=== PATIENT | female | born 1945 | race Caucasian/White ===

== ENCOUNTER → 2024-01-16 12:14 | Outpatient (REF) | payer OTHER, SELFPAY | LOC: PAVMRI 12:14 | PROVIDERS: ATTENDING PHYSICIAN Internal Medicine Gastroenterology; FAMILY PHYSICIAN Internal Medicine | DX: K83.8 Other specified diseases of biliary tract (principal) | CPT/HCPCS: 74181; A9575 ==

== ENCOUNTER 2024-06-17 19:21 | Emergency (ER) | payer OTHER, SELFPAY ==
[2024-06-17 19:23] VITALS: BP 136/74
[2024-06-17 19:46] LABS: % Basophils 0.5 % (0-2); % Eosinophils 1.5 % (0-6); % Immature Granulocytes 0.4 % (0-0.5); % Lymphocytes 19.1 % (20.5-51.1); % Monocytes 11.2 % (1.7-9.3); % Neutrophils 67.3 % (42.2-75.2); Absolute Basophils 0.1 10^3/uL (0-0.2); Absolute Eosinophils 0.1 10^3/uL (0-0.7); Absolute Lymphocytes 1.8 10^3/uL (1.2-3.4); Absolute Neutrophils 6.2 10^3/uL (1.4-6.5); Hematocrit 41.6 % (37.0-47.0); Hemoglobin 14.5 g/dL (12.0-16.0); Mean Corp Hgb Conc. 34.9 g/dL (33.0-37.0); Mean Corpuscular Hgb 31.9 pg (27.0-31.0); Mean Corpuscular Volume 91.4 fL (81.0-99.0); Mean Platelet Volume 10.3 fL (7.4-10.4); Nucleated Red Blood Cells % 0 %; Platelet Count 232 10^3/uL (130-400); Red Blood Cell Count 4.55 10^6/uL (4.20-5.40); Red Cell Dist. Width 11.9 % (11.5-14.5); White Blood Cell Count 9.2 10^3/uL (4.8-10.8)
[2024-06-17 20:02] LABS: ALT (SGPT) 27 U/L (0-35); AST (SGOT) 43 U/L (14-36); Albumin 4.4 g/dl (3.5-5.0); Alkaline Phosphatase 93 U/L (38-126); Blood Urea Nitrogen 18 mg/dl (7-17); Calcium 9.1 mg/dl (8.4-10.2); Carbon Dioxide 25 mmol/L (22-30); Chloride 104 mmol/L (98-107); Glucose 121 mg/dl (70-99); Lipase 55 U/L (23-300); Potassium 3.9 mmol/L (3.5-5.1); Sodium 138 mmol/L (135-145); Total Bilirubin 0.8 mg/dl (0.2-1.3); Total Protein 6.8 g/dl (6.3-8.2); eGFR > 60.00
[2024-06-17 20:40] VITALS: BMI 27.7
[2024-06-17 20:43] VITALS: BP 139/59
[2024-06-17 21:15] VITALS: BP 141/47
[2024-06-17] MEDS: NSS 500 IV (21:17)
--- NOTE | 2024-06-17 22:12 | ED.GENMED ---
History of Present Illness
General
Chief Complaint: Abdominal Symptoms
Source: patient and family
Exam Limitations: none
Time Seen by Provider: 06/17/24 20:29
History of Present Illness
History of Present Illness:
Patient describing months of vague abdominal discomfort with soft watery mucousy stool. Some poor p.o. intake. Waited till now because of family commitments. No fever no vomiting no other complaints.
Past History
Past History
ED Past Medical History: CAD, GERD (w/ ulcer) and Hypercholesterolemia
ED Past Surgical History: Cardiac (Angioplasty), Gynecological (Breast reduction) and Other (Ruptured ulcer repair)
Social History
Tobacco: Non-smoker
Alcohol: None
Drug: None
Personal:
Living: with family
Employment: Retired
Review of Systems
Review of Systems
All Other Systems: Not applicable
Constitutional: Denies fever or chills
Respiratory: Reports no symptoms
Cardiac: Reports no symptoms
Phy Exam
Physical Exam
Physical Exam:
GENERAL: Alert and oriented in no apparent distress. Ambulating to the bathroom without difficulty
EYE: Orbits normal.
NECK: Supple, no significant adenopathy.
ENT: Pharynx without erythema
CARDIAC: Regular rate and rhythm without any obvious murmurs.
LUNGS: Clear breath sounds,normal
ABDOMEN: Soft, very minimal vague right-sided abdominal tenderness. Nonlocalizing. No rebound or guarding no mass or hernia. Rectal exam with no stool in the rectal vault. Diarrhea was very yellow mucousy with a hint of blood
NEUROLOGICAL: Alert and oriented , grossly non-focal
SKIN: Warm and dry, no rash or lesion, no discoloration, skin intact.
MUSCULOSKELETAL: No edema,no deformity.Good color
PSYCH: Normal and appropriate interaction.
Course
Orders/Labs/Results
Orders:
Orders
06/17/24 19:33
Complete Blood Count/With Diff Urgent
Comprehensive Metabolic Panel Urgent
Lipase Urgent
06/17/24 21:10
IV Insert/Care/Rem.- Treatment PRN
0.9% Sodium Chloride 500 ml [Nss] 500 ml IV BOLUS
06/17/24 21:11
CT Abd/Pel (IV only)-DH only Urgent
Comment:
Reason For Exam: Recurrent right-sided abdominal pain with mucousy
06/17/24 21:20
STOOL [C difficile Antigen & Toxins] Urgent
BRITTNY Source: Feces/Stool
Specimen Description:
Date Specimen was Collected: 06/17/24
Time Specimen was Collected: 21:12
Stool Culture Urgent
BRITTNY Source: Feces/Stool
Specimen Description:
Date Specimen was Collected: 06/17/24
Time Specimen was Collected: 21:12
06/17/24 23:02
Ciprofloxacin HCl [Cipro] 500 mg PO NOW STA
MetroNIDAZOLE [Flagyl] 500 mg PO NOW STA
Abnormal Lab Results
06/17/24
19:33
MCH 31.9 H pg
(27.0-31.0)
Absolute Monos (auto) 1.0 H 10^3/uL
(0.1-0.6)
Lymphocytes % 19.1 L %
(20.5-51.1)
Monocytes % 11.2 H %
(1.7-9.3)
BUN 18 H mg/dl
(7-17)
Glucose 121 H mg/dl
(70-99)
AST 43 H U/L
(14-36)
06/17/24 19:33
06/17/24 19:33
Vital Signs
Initial and Last Documented VS:
Initial Vital Signs
Temp Pulse Resp BP Pulse Ox
98.9 F 84 16 136/74 97
06/17/24 19:23 06/17/24 19:23 06/17/24 19:23 06/17/24 19:23 06/17/24 19:23
Last Documented Vital Signs
Temp Pulse Resp BP Pulse Ox
98.9 F 86 16 145/65 98
06/17/24 19:23 06/17/24 23:00 06/17/24 23:07 06/17/24 23:07 06/17/24 23:00
MDM/Problems Addressed
Differential Diagnosis Includes:
Patient describing mucousy stools. Most consistent with a colitis. Workup in progress. Clinically nontoxic. Nonsurgical exam. Stool culture also ordered.
*Pulse Oximetry
Patient hypoxic: no
*Critical Care Note
Total Time (30-74mins, 75-104mins- exclusive of procedures): Not Applicable
Data Reviewed
Review of Other/Old Records Reveals: Labs, Records and Testing
Update Note
Update Note:
Sigmoid proctoscopy colitis. Kerri options with patient. Clinically stable for outpatient management. Will start Flagyl and Cipro and refer to outpatient GI for close follow-up. Texted to the GI first front ventilator
ED Attending Note
-
Portions of this chart may have been created with voice recognition software.� Occasional wrong word or��sound alike� substitutions may have occurred due to the inherent limitations of voice recognition software.
Discharge Plan
Departure
Patient Disposition: Home (Routine Discharge)
Date of Disposition: 06/17/24
Time of Disposition: 23:07
Patient with high blood pressure during this ER visit?: Yes
Discharge Problem:
Sigmoid proctitis
Instructions: Diarrhea in teens and adults, Proctitis, Colitis - Discharge instructions, Abdominal Pain, BLOOD PRESSURE
Prescriptions:
New
ciprofloxacin HCl 500 mg tablet
500 mg PO BID Qty: 14 0RF
metronidazole 500 mg tablet
500 mg PO TID Qty: 21 0RF
No Action
cephalexin 500 mg capsule
500 mg PO Q12H Qty: 10 0RF
Referrals:
Kelly Lozoya MD [Active] - Follow up in 2-3 days
Jasmine Henson MD [Family Provider] - Follow up in 2-3 days
Activity Restrictions/Additional Instructions:
Your prescriptions were sent to your pharmacy
Also take a probiotic with the antibiotics
I would expect you should get a call from the gastroenterology group tomorrow morning. If you have not heard from them by late morning please call them.
Interventions
Interventions:
*Risk Screen - Suicide Last Done: 06/17/24 20:40
*General Assessment Last Done: 06/17/24 20:40
*Neglect/Abuse Screening Last Done: 06/17/24 20:40
*ED- Fall Risk Assessment Last Done: 06/17/24 20:40
*ED COVID-19 Vaccine History Last Done: 06/17/24 20:40
*Nursing Disposition Last Done: 06/17/24 23:16
PX-Rmdwge-Fksffshurv Assessment Last Done: 06/17/24 20:40
Discharge Date and Time
Discharge Date/Time: 06/17/24 23:32
Print Language: SOMALI
[2024-06-17 22:13] VITALS: BP 148/57
[2024-06-17 23:07] VITALS: BP 145/65
[2024-06-17] MEDS: FLAGYL 500 MG PO (23:11)
[2024-06-17] MEDS: CIPRO 500 MG PO (23:11)
== END 2024-06-17 23:32 | disposition home or self-care (01) ==
LOC: EMR 19:21
PROVIDERS: Emergency Medicine; EMERGENCY PHYSICIAN Emergency Medicine; FAMILY PHYSICIAN Internal Medicine
DX: K51.20 Ulcerative (chronic) proctitis without complications (principal); R03.0 Elevated blood-pressure reading, without diagnosis of hypertension
CPT/HCPCS: 99285; 96360; 96361; 74177; 80053; 83690; 85025; 87045; 87046; 87324; 87427; 87449; Q9967

== ENCOUNTER → 2024-06-21 08:31 | Outpatient (REF) | payer OTHER, SELFPAY | LOC: RAD 08:31 | PROVIDERS: ATTENDING PHYSICIAN Internal Medicine | DX: Z78.0 Asymptomatic menopausal state (principal) | CPT/HCPCS: 77080 ==

== ENCOUNTER → 2024-07-01 11:19 | Outpatient (REF) | payer OTHER, SELFPAY | LOC: PAVMRI 11:19 | PROVIDERS: ATTENDING PHYSICIAN Orthopaedic Surgery; FAMILY PHYSICIAN Internal Medicine | DX: M75.31 Calcific tendinitis of right shoulder (principal) | CPT/HCPCS: 73221 ==

== ENCOUNTER 2024-07-04 06:24 | Day surgery (SDC) | payer OTHER, SELFPAY | END 2024-07-04 11:44 | disposition home or self-care (01) | LOC: GI 06:24 | PROVIDERS: ATTENDING PHYSICIAN Internal Medicine Gastroenterology; FAMILY PHYSICIAN Internal Medicine | DX: K52.9 Noninfective gastroenteritis and colitis, unspecified (principal); K63.89 Other specified diseases of intestine; K62.89 Other specified diseases of anus and rectum; K57.30 Diverticulosis of large intestine without perforation or abscess without bleeding; D12.0 Benign neoplasm of cecum; D12.3 Benign neoplasm of transverse colon; D12.4 Benign neoplasm of descending colon; K63.5 Polyp of colon | CPT/HCPCS: 45380; 88305 ==

== ENCOUNTER 2025-01-23 15:33 | Emergency (ER) | payer OTHER, SELFPAY ==
[2025-01-23 15:36] VITALS: BP 158/83
--- NOTE | 2025-01-23 16:10 | ED.GENMED ---
History of Present Illness
General
Chief Complaint: Fall
Source: patient
Exam Limitations: none
Time Seen by Provider: 01/23/25 16:02
Nursing documentation reviewed up to this point in time: agreed with
History of Present Illness
History of Present Illness:
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 Patient tripped over a curb and fell landing on her left face. She complains of
swelling around her left eye she did hit her left knee but denies any knee pain. Her last tetanus is up-to-date. She does not have blood thinners. She denies any headache. She denies any current neck pain. No other injury.
Past History
Past History
ED Past Medical History: CAD, GERD (w/ ulcer) and Hypercholesterolemia
ED Past Surgical History: Cardiac (Angioplasty), Gynecological (Breast reduction) and Other (Ruptured ulcer repair)
Social History
Tobacco: Non-smoker
Alcohol: None
Drug: None
Personal:
Living: with family
Employment: Retired
Phy Exam
General Physical Exam
General Presentation: no apparent distress
General age: appears stated age
General Skin: warm and dry
General Habitus: normal
General Mental: alert
General Hydration: appears well hydrated
Eye Exam
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
Eye Exam General: PERRL: bilateral
Pupil Exam: Bilateral: round and reactive
Neurological Exam
Neurological Exam: alert, oriented x3, no motor deficits and no sensory deficits
Musculoskeletal Exam
Musculoskeletal Exam: full ROM and other (lle with small abrasion to anterior left knee no bony tenderness no swelling, full ROM )
Skin Exam
Skin Exam: normal color and warmth
Psychiatric Exam
Psychiatric Exam: normal mood/affect
Course
Orders/Labs/Results
Orders:
Orders
01/23/25 17:00
CT Cervical Spine W/o Iv Contr Urgent
Comment:
Reason For Exam: trauma
CT Facial Bones W/o Iv Contras Urgent
Comment:
Reason For Exam: left orbital swelling/trauma
CT Head W/o Iv Contrast Urgent
Comment:
Reason For Exam: trauma
01/23/25 20:25
Acetaminophen [Tylenol] 1,000 mg PO NOW STA
Clindamycin HCl [Cleocin] 300 mg PO NOW STA
01/23/25 20:32
Clindamycin HCl [Cleocin] 300 mg PO NOW STA
Vital Signs
Initial and Last Documented VS:
Initial Vital Signs
Temp Pulse Resp BP Pulse Ox
98.3 F 84 16 158/83 98
01/23/25 15:36 01/23/25 15:36 01/23/25 15:36 01/23/25 15:36 01/23/25 15:36
Last Documented Vital Signs
Temp Pulse Resp BP Pulse Ox
98.3 F 76 18 155/70 99
01/23/25 15:36 01/23/25 18:32 01/23/25 18:32 01/23/25 18:32 01/23/25 18:32
Behavioral Health Aide consulted with Physician
Behavioral Health Aide consulted with physician?: Yes
Name of Physician Consulted: vu
MDM/Problems Addressed
Differential Diagnosis Includes:
Not limited to intracranial head injury facial fracture versus contusion abrasion
MDM/Problems Addressed:
Patient is an 79-year-old female describes mechanical fall trip and fall over a curb landing on her face. She has obvious swelling and ecchymosis to her left orbital region with no entrapment. No blood thinners. She has a normal neurological
exam. CAT scan however does show a left orbital fracture of the mid to posterior orbit depressed by 3 mm. I did review this with oral maxillofacial surgery Dr. Levin who recommends being followed as an outpatient and recommends either Augmentin or
clindamycin. Patient reports she is unable to take Augmentin will DC with clindamycin close outpatient follow-up. Discussed ice and Tylenol.
*Radiology
Radiology exam reviewed: radiology read reviewed
*Pulse Oximetry
SaO2: 98
Oxygen Mode of Delivery: Room air
Patient hypoxic: yes
*Critical Care Note
Total Time (30-74mins, 75-104mins- exclusive of procedures): Not Applicable
Patient Management
Discussion with other providers: Carpenter Foreman (DR Levin .[facility])
ED Attending Note
-
Portions of this chart may have been created with voice recognition software.� Occasional wrong word or��sound alike� substitutions may have occurred due to the inherent limitations of voice recognition software.
Discharge Plan
Departure
Patient Disposition: Home (Routine Discharge)
Date of Disposition: 01/23/25
Time of Disposition: 20:26
Patient with high blood pressure during this ER visit?: Yes
Condition: Fair
Covid-19: Not Applicable
Discharge Problem:
Orbital fracture, Fall
Instructions: Facial fractures, BLOOD PRESSURE
Prescriptions:
New
clindamycin HCl [Cleocin HCl] 300 mg capsule
300 mg PO Q6H Qty: 28 0RF
No Action
cephalexin 500 mg capsule
500 mg PO Q12H Qty: 10 0RF
ciprofloxacin HCl 500 mg tablet
500 mg PO BID Qty: 14 0RF
metronidazole 500 mg tablet
500 mg PO TID Qty: 21 0RF
Referrals:
Jasmine Henson MD [Family Provider, Internal Medicine]
Manoj Levin DMD, MD [Active, Oral Surgery]
Activity Restrictions/Additional Instructions:
As discussed you have an orbital floor fracture of your left eye. You will need to follow-up with oral facial surgery. Please call the office tomorrow to make an appointment as soon as possible. In addition a prescription for clindamycin was sent
to your pharmacy to take for the next 7 days. Take as directed. You may take a probiotic while taking this medication as well. Return if any worsening of symptoms.
Ice the affected area for the next 24 hours 20 minutes at a time several times a day
Interventions
Interventions:
*Risk Screen - Suicide Last Done: 01/23/25 15:36
*General Assessment Last Done: 01/23/25 16:13
*Neglect/Abuse Screening Last Done: 01/23/25 15:36
*ED- Fall Risk Assessment Last Done: 01/23/25 16:13
*ED COVID-19 Vaccine History Last Done: 01/23/25 16:13
*ED Influenza Vaccine History Last Done: 01/23/25 16:13
ED-Musculoskeletal Assessment Last Done: 01/23/25 16:13
ED- Neurological Assessment Last Done: 01/23/25 16:10
ED-Skin Assessment Last Done: 01/23/25 16:13
Discharge Date and Time
Print Language: ESTONIAN
[2025-01-23 18:32] VITALS: BP 155/70
[2025-01-23] MEDS: TYLENOL 1000 MG PO (20:35)
[2025-01-23] MEDS: CLEOCIN 300 MG PO (20:35)
== END 2025-01-23 20:48 | disposition home or self-care (01) ==
LOC: EMR 15:33
PROVIDERS: EMERGENCY PHYSICIAN Emergency Medicine; FAMILY PHYSICIAN Internal Medicine
DX: S02.32XA Fracture of orbital floor, left side, initial encounter for closed fracture (principal); E78.00 Pure hypercholesterolemia, unspecified; I25.10 Atherosclerotic heart disease of native coronary artery without angina pectoris; W10.1XXA Fall (on)(from) sidewalk curb, initial encounter
CPT/HCPCS: 99284; 70450; 70486; 72125